=== PATIENT | female | born 1945 | race Caucasian/White ===

== ENCOUNTER 2019-05-31 15:28 | Inpatient (IN) | payer MEDICARE ==
[~2019-05-31] VITALS: Ht 170.2 cm; Wt 77.2 kg
[~2019-05-31 15:28] MED LIST: AMLODIPINE BESY10 MG PO; APRESOLINE25 MG PO; ASPIRIN ADULT L81 M2 PO; ASPIRIN CHEWABL81 MG PO; COREG3.125 MG PO; HYDROCHLOROTHIA50 M1 PO; IMDUR SA30 MG PO; KLOR-CON 1010 ME1 PO; LASIX40 MG PO; LISINOPRIL2.5 MG PO; METFORMIN HYD1000 MG PO; NORCO 5-325 TA1 EACH PO; RANEXA500 M1 PO; TRAD5TAB1 PO
[2019-05-31 15:45] VITALS: BP 198/90
[2019-05-31 16:00] VITALS: BP 198/90
[2019-05-31] MEDS ORDERED: COREG12.5 M1 PO (16:24)
[2019-05-31] MEDS ORDERED: HYDRALAZINE HYD50 MG PO (16:26)
[2019-05-31] MEDS ORDERED: IMDUR SA60 M1 PO (16:29)
[2019-05-31 16:30] VITALS: BP 184/82
[2019-05-31] MEDS ORDERED: COZAAR50 M1 PO (16:30)
[2019-05-31] MEDS ORDERED: VITAMIN D-32000 UNI1 PO (16:30)
[2019-05-31 17:00] LABS: BASO # 0.1 10*3/uL (0.0-0.1); BASO % 0.8 % (0.0-1.0); EOS # 0.2 10*3/uL (0.0-0.4); EOS % 2.1 % (1.0-4.0); HEMATOCRIT 36.9 % (37.0-47.0); HEMOGLOBIN 11.3 g/dl (12.0-16.0); LYMPH # 0.4 10*3/uL (1.3-4.4); LYMPH % 5.8 % (27.0-41.0); MEAN CELL VOLUME 88.5 fl (81.0-99.0); MEAN CORPUSCULAR HGB 27.1 pg (27.0-31.0); MEAN CORPUSCULAR HGB CONC 30.6 g/dl (33.0-37.0); MEAN PLATELET VOLUME 10.9 fl (9.6-12.3); MONO # 0.5 10*3/uL (0.1-1.0); MONO % 6.5 % (3.0-9.0); NEUT # 6.4 10*3/uL (2.3-7.9); NEUT % 84.1 % (47.0-73.0); PLATELET COUNT AUTOMATED 189 10*3/uL (130-400); RED BLOOD COUNT 4.17 10*6/uL (4.10-5.10); RED CELL DISTRI WIDTH 15.1 % (0-14.5); WHITE BLOOD COUNT 7.6 10*3/uL (4.8-10.8)
--- NOTE | 2019-05-31 17:12 | NUR ---
A 73, admitted to , under the services of Dr. MANUEL DAVIDSON,[facility] with a diagnosis of ACUTE ON CHRONIC DIASTOLIC HEART FAILURE. Chief complaint is SHORTNESS OF BREATH. Patient arrived via ambulatory from DR. JACKSON OFFICE. Monitor applied. Initial assessment completed. Vital signs taken and recorded. DR. ANNA DAVIDSON notified of admission to the unit IS AT BEDSIDE. Orders received. See assessment for past medical history, medications and allergies. Patient and/or family oriented to TELEMETRY visitation policy reviewed. Clothing/patient valuable form completed. ASAD WARD RN
[2019-05-31 17:13] LABS: ALBUMIN 3.2 gm/dl (3.1-4.5); CREATININE 2.31 mg/dL (0.55-1.02); POTASSIUM 4.8 mmol/L (3.5-5.1); TOTAL PROTEIN 6.7 gm/dL (6.4-8.2)
[2019-05-31 17:14] LABS: TROPONIN I < 0.015 ng/ml (<0.045)
--- NOTE | 2019-05-31 17:15 | NUR ---
DR. CASTILLO NOTIFIED OF PATIENT WOUND ON BOTTOM OF LEFT FOOT, AWAITING ORDERS.
--- NOTE | 2019-05-31 18:30 | NUR ---
DR. OWENS NOTIFIED OF CONSULT AT THIS TIME, STATED WILL SEE PATIENT TOMORROW
--- NOTE | 2019-05-31 18:40 | NUR ---
DR. OLSEN RECALLED FOR WOUND CARE ORDERS, ORDERED TO PLACE DRY DRESSING AT THIS TIME AND HAVE WOUND CARE PLACE ORDERS TOMORROW.
[2019-05-31 20:00] VITALS: BP 201/91
--- NOTE | 2019-05-31 20:20 | NUR ---
PT RESTING IN BED, ASSISTED UP TO BATHROOM AND BACK TO BED WITH NO PROBLEM. VISITORS AT HER SIDE. RESP-EASY AND REGULAR. CALL LIGHT IN REACH. SEE SHIFT ASSESSMENT.
[2019-05-31 20:30] VITALS: BP 186/96
[2019-05-31 21:50] VITALS: BP 160/80
--- NOTE | 2019-05-31 22:29 | NUR ---
DR. CASTILLO CALLED AWARE PT BP WAS 186/96 MANUALLY GAVE BP MEDICATIONS. TOOK AGAIN AT 10PM 160/80 MANUALLY. NO NEW ORDERS TAKEN.
[2019-06-01] VITALS: BP 148/48
--- NOTE | 2019-06-01 00:10 | NUR ---
ASSISTED TO BATHROOM AND BACK TO BED. RESP-EASY AND REGULAR. NO C/O AT THIS TIME. CALL LIGHT IN REACH. SEE SHIFT ASSESSMENT.
--- NOTE | 2019-06-01 04:00 | NUR ---
PT SLEEPING IN BED. RESP-EASY AND REGULAR. CALL LIGHT IN REACH.
--- NOTE | 2019-06-01 06:00 | NUR ---
PT ASSISTED UP TO BATHROOM AND BACK IN BED. TOLERATED ROUTINE IV MED WITH NO PROBLEM. CALL LIGHT IN REACH.
[2019-06-01 07:36] LABS: BASO % 0.5 % (0.0-1.0); EOS # 0.2 10*3/uL (0.0-0.4); EOS % 3.6 % (1.0-4.0); HEMOGLOBIN 10.5 g/dl (12.0-16.0); LYMPH # 0.5 10*3/uL (1.3-4.4); LYMPH % 8.3 % (27.0-41.0); MEAN CELL VOLUME 87.2 fl (81.0-99.0); MEAN CORPUSCULAR HGB 26.9 pg (27.0-31.0); MEAN CORPUSCULAR HGB CONC 30.9 g/dl (33.0-37.0); MEAN PLATELET VOLUME 11.4 fl (9.6-12.3); MONO # 0.5 10*3/uL (0.1-1.0); MONO % 7.9 % (3.0-9.0); NEUT # 4.9 10*3/uL (2.3-7.9); NEUT % 79.4 % (47.0-73.0); PLATELET COUNT AUTOMATED 177 10*3/uL (130-400); RED CELL DISTRI WIDTH 15.1 % (0-14.5); WHITE BLOOD COUNT 6.2 10*3/uL (4.8-10.8)
[2019-06-01 08:00] VITALS: BP 148/90
[2019-06-01 08:02] LABS: ALBUMIN 2.9 gm/dl (3.1-4.5); CREATININE 2.24 mg/dL (0.55-1.02); POTASSIUM 4.2 mmol/L (3.5-5.1)
--- NOTE | 2019-06-01 10:22 | NUR ---
DR HE MADE AWARE OF NEW CONSULT.
[2019-06-01 12:00] VITALS: BP 113/49; BP 148/90; BP 171/63
[2019-06-01 16:00] VITALS: BP 174/73
--- NOTE | 2019-06-01 16:00 | NUR ---
PT RESTING IN BED, NO DISTRESS NOTED. CALL LIGHT WITHIN REACH.
[2019-06-01 20:00] VITALS: BP 162/86
--- NOTE | 2019-06-01 20:07 | NUR ---
PT RELAXING IN BED WATCHING TV. PT STATES SHE IS BREATHING A LOT BETTER TODAY COMPARED TO YESTERDAY. PT BP ELEVATED AT 162/86. BP MED APRESOLINE GIVEN EARLY AT THIS TIME. WILL RECHECK BP. PT AYSMPTOMATIC. PT HAS NO COMPLAINTS AT THIS TIME. WILL MONITOR. CALL LIGHT WITHIN REACH.
[2019-06-01 21:00] VITALS: BP 146/84
--- NOTE | 2019-06-01 23:00 | NUR ---
24 HR chart check completed.
--- NOTE | 2019-06-01 23:20 | NUR ---
TRIED TO CALL TO INFORM HIM OF PTS BP 160/88 MANUALLY. NO ANSWER WILL RETRY.
--- NOTE | 2019-06-01 23:26 | NUR ---
TRIED TO CALL AGAIN. STILL NO ANSWER.
--- NOTE | 2019-06-01 23:26 | NUR ---
REACHED ON HIS HOME PHONE. SEE NEW ORDERS.
--- NOTE | 2019-06-01 23:44 | NUR ---
PTS BP BACK UP TO 160/88 MANUAL CHECK. ADMINISTERED CLONIDINE ORDERED. WILL RECHECK BP.
[2019-06-02] VITALS: BP 160/88
[2019-06-02 00:44] VITALS: BP 148/76
[2019-06-02 07:13] LABS: CREATININE 2.29 mg/dL (0.55-1.02)
[2019-06-02 08:08] VITALS: BP 190/100
--- NOTE | 2019-06-02 10:42 | NUR ---
DR JACKSON HERE AT THIS TIME, MADE AWARE OF AM BP OF 190/100 PRIOR TO AM MEDS, ONE HOUR FOLLOWING MEDS, BP IS 172/80, ORDER RECEIVED TO GIVE 0.1 MG OF CLONIDINE NOW AND RECHECK BP IN 6 HOURS.
--- NOTE | 2019-06-02 11:30 | NUR ---
DR JACKSON MADE AWARE OF WOUND TO PT'S LEFT PLANTAR ASPECT OF HER FOOT. ORDER RECEIVED FOR PODIATRY CONSULT AND ARTERIAL US.
[2019-06-02 12:00] VITALS: BP 176/70
--- NOTE | 2019-06-02 12:55 | NUR ---
PODIATRY HERE AT THIS TIME, DRESSING APPLIED TO LEFT FOOT.
[2019-06-02 15:58] VITALS: BP 149/64
[2019-06-02 20:23] VITALS: BP 140/92
[2019-06-03] VITALS: BP 156/88
[2019-06-03 06:30] LABS: CREATININE 2.41 mg/dL (0.55-1.02); POTASSIUM 4.2 mmol/L (3.5-5.1)
--- NOTE | 2019-06-03 07:15 | NUR ---
PT RESTING IN BED . RESPIRATIONS EASY AND REGULAR. PT HAS NO COMPLAINTS AT THIS TIME. CALL LIGHT WITHIN REACH. WILL CONTINUE TO MONITOR.
--- NOTE | 2019-06-03 07:27 | NUR ---
HUMA WRIGHT [id number] Please refer to the physician's history and physical for past medical history, comorbid conditions, and allergies. Diagnosis: H Vini Score: 18,LOW OR NO RISK WOUND DESCRIPTIONS: Wound Number: 1 Location of the wound: LEFT PLANTAR FOOT Type of wound: UNSTAGEABLE (DFU PER PODIATRY BUT NO GRADE DOCUMENTED) Thickness: Size: 2.5cm X 1.7cm X <0.1cm Tunneling: NONE Undermining: NONE Sinus Tract: NONE Presence of Exudate: None Amount: None Color: Brown Odor: None Periwound Skin Appearance: Normal Wound edges: CALLUS Pain (associated with wound): DENIED AT TIME OF ASSESSMENT How does patient state this happened? PATIENT STATES THAT SHE WAS IN [place] WITH HER SISTER WHEN SHE NOTICED THE AREA APPROXIMATELY 2 WEEKS AGO. PATIENT STATES THAT SHE DID NOT WANT TO SEE A DOCTOR IN [place] DUE TO PATIENT RETURNING HOME. If wound is on legs/feet or hands, capillary refill time, pulses, color temp, sensation: CAP REFILL <3 SECONDS. COLOR AND TEMP WNL. Surface the patient is resting on: Isoflex SKIN PREVENTION RECOMMENDATION: 1. Pressure redistribution support surface as appropriate 2. Elevate heels 3. Remove boots/TEDS every shift and reapply 4. Head of bed 30 degrees as tolerated 5. Assess nutrition and hydration 6. Manage moisture 7. Avoid the use of containment devices while in bed 8. Use absorptive products on surfaces limit layers of linens on bed 9. Turn and reposition every 1-2 hours in bed and every 1 hour in chair as tolerated 10. Weight shifts every 15 minutes while up in chair 11. Offloading with pillows or device to keep heels elevated off bed 12. Monitor skin at least every shift 13. Inspect under medical devices twice a day WOUND TREATMENT RECOMMENDATIONS: PODIATRY FOLLOWING PATIENT. CONTINUE CURRENT ORDERS OF BACTROBAN DAILY COVER WITH BANDAGE. BLE ULTRASOUNDS ORDERED. X-RAY OF LEFT FOOT ORDERED. POSSIBLE DEBRIDEMENT IF IMAGING STUDIES ALLOW. HEEL RAISER PROBOOTS WHILE IN BED.
[2019-06-03 08:00] VITALS: BP 158/84
--- NOTE | 2019-06-03 08:18 | NUR ---
PHYSICAL THERAPY Screen received pt is an admit from [facility] with respiratory failure/sepsis please consult PT as medically appropriate, thank you. Melinda Owens PT
--- NOTE | 2019-06-03 08:36 | NUR ---
Dr. Marin stated to put wound care recommendations in the hospitalist office for Dr. Jesus.
--- NOTE | 2019-06-03 09:00 | NUR ---
Clerk Travel Reservations in to talk to patient. Patient states lives at home alone with her family checking in on her. There are 14 steps in the home. Physician: Dr. Bola Montiel [facility]acy: [facility] Home health services: none Patient's level of ADLs: minimal assistance Patient has working utilities: yes DME: cane when needed Follow-up physician's appointment after d/c: she prefers to make her own follow up appt after discharge Does patient want to access PORTAL?: no Discharge plan discussed with patient. She lives at home alone with her family checking in on her. She is independent in his ADLs and uses a cane for ambulation occasionally. Discussed home health care services and she denies any home needs at this time. When medically stable she will be discharged to home. Her daughter will provide transportation on discharge. BP 156/88, added clonidine. Cr elevated 2.41, Dr. Latham consulted. Diuresing with Dr. Melissa garcia consulted. ROCK LAGUNA
[2019-06-03 12:00] VITALS: BP 154/55
--- NOTE | 2019-06-03 13:23 | NUR ---
INFORMED OF US RESULTS.
[2019-06-03 16:00] VITALS: BP 136/84
--- NOTE | 2019-06-03 16:10 | NUR ---
BROUGHT HEEL PROTECTORS IN AND LET HER KNOW THE DR WOULD LIKE HER TO WEAR THEM WHILE SHE'S IN BED. PT REFUSING TO WEAR THEM. LEFT IN ROOM INCASE PT CHANGES HER MIND.
--- NOTE | 2019-06-03 16:23 | NUR ---
Nursing screen received and chart reviewed. Patient lives home alone and was independent per case management prior to admission. If patient should have a decline in ADL status then refer to OT. Thank you. Samantha Ventura OTR/l
[2019-06-03 20:00] VITALS: BP 142/80
--- NOTE | 2019-06-03 20:20 | NUR ---
PT AWAKE IN BED. RESPIRATIONS EASY. NO S/S OF DISTRESS NOTED. DENIES ANY NEEDS AT PRESENT TIME. WILL MONITOR. CALL LIGHT IN REACH.
[2019-06-04] VITALS: BP 148/78
[2019-06-04 00:09] LABS: BILIRUBIN NEGATIVE (NEGATIVE); BLOOD 1+ (NEGATIVE); CLARITY CLEAR (CLEAR); COLOR YELLOW (YELLOW); GLUCOSE NEGATIVE (NEGATIVE); KETONE NEGATIVE (NEGATIVE); LEUKO ESTERASE NEGATIVE (NEGATIVE); NITRITE POSITIVE (NEGATIVE); SPECIFIC GRAVITY 1.015 (1.005-1.030); UROBILINOGEN 0.2 E.U./dl (0.2-1.0)
[2019-06-04 00:28] LABS: BACTERIA 2+; WBC 21-30 wbc/hpf (0-5)
--- NOTE | 2019-06-04 01:59 | NUR ---
PT ASLEEP IN BED. RESPIRATIONS EASY. NO S/S OF DISTRESS NOTED. WILL MONITOR. CALL LIGHT IN REACH.
--- NOTE | 2019-06-04 05:50 | NUR ---
PT REFUSING RENAL US. RN ATTEMPTED TO EXPLAIN NEED FOR TESTING. PT STILL DECLINING.
[2019-06-04 06:52] LABS: ALBUMIN 2.9 gm/dl (3.1-4.5); CREATININE 2.41 mg/dL (0.55-1.02); PHOSPHOROUS 4.2 mg/dL (2.5-4.9); TOTAL PROTEIN 6.1 gm/dL (6.4-8.2)
--- NOTE | 2019-06-04 07:15 | NUR ---
NOTIFIED OF PT REFUSING RENAL US.
[2019-06-04 08:00] VITALS: BP 190/90
--- NOTE | 2019-06-04 09:12 | NUR ---
DR. CASTILLO NOTIFIED OF 190/90 BP. HR 54, ORDERED TO HOLD COREG.
--- NOTE | 2019-06-04 10:30 | NUR ---
Button Sewer in to see patient. No new needs or request at this time. She denies any home needs. When medically stable she will be discharged to home. Dr. Torres consulted, chest x-ray pulmonary vascular congestion, lasix 40 mg iv bid, Cr elevated at 2.41, Dr. Latham following, renal u/s, repeat chest x-ray in a couple of days. DVT started on Eliquis.
--- NOTE | 2019-06-04 11:55 | NUR ---
Nutritional Support Services Note: Pt states he doesn't have a wound. Hand Laster was in and said it was a calleous and removed it. Encouraged pt to eat healthy meals. Stressed importance of increased protein and calories to promote healing. Pt is requesting a regular diet- currently on a cardiac diet. Will follow if needed. Will provide pt with a night snack. Lizbeth Dumont
[2019-06-04 12:00] VITALS: BP 148/68
[2019-06-04 16:00] VITALS: BP 152/75
[2019-06-04 20:00] VITALS: BP 162/86
[2019-06-04 21:20] VITALS: BP 142/90
[2019-06-05] VITALS: BP 154/80
[2019-06-05 05:09] LABS: CREATININE,URINE 22.4 mg/dL (Not Estab.); MICRO ALBUMIN/CRE RATIO 4947.3 (0.0-30.0)
[2019-06-05 06:44] LABS: CREATININE 2.5 mg/dL (0.55-1.02)
[2019-06-05 07:37] VITALS: BP 142/80
--- NOTE | 2019-06-05 07:37 | NUR ---
ASSESSMENT DOCUMENTATION COMPLETED, PT AWAKE AND IN RESTROOM UPON ENTERING THE ROOM, NO S/S OF DISTRESS AT THIS TIME, CALL LIGHT IN REACH, WILL CONTINUE TO MONITOR. CRISTINE LA SPCC
--- NOTE | 2019-06-05 09:00 | NUR ---
Deportation Officer in to see patient. No new needs or request at this time. She denies any home needs. When medically stable she will be discharged to home. Dr. Torres consulted, chest x-ray pulmonary vascular congestion, lasix 40 mg IV bid, lost 19 pounds, Dr. Latham following. Tentative discharge tomorrow.
--- NOTE | 2019-06-05 09:34 | NUR ---
IV SITE CHANGE DUE. RIGHT ARM IV FLUSHES EASILY. SITE ASYMPTOMATIC. PT DENIES PAIN OR DISCOMFORT AT SITE. PT REQUESTS TO NOT CHANGE AT THIS TIME.
--- NOTE | 2019-06-05 10:13 | NUR ---
APICAL HR 60 PRIOR TO GIVING COREG.
--- NOTE | 2019-06-05 10:15 | NUR ---
PT RELAXING IN BED, NO S/S OF DISTRESS AND HAS NO COMPLAINTS AT THIS TIME. CRISTINE LA SPNRCC
[2019-06-05 11:45] VITALS: BP 160/70
--- NOTE | 2019-06-05 11:48 | NUR ---
Eliquis 5 mg po BID prescription brought to pharmacy for [facility].
--- NOTE | 2019-06-05 12:11 | NUR ---
ASSESSMENT COMPLETED AND DOC'D. NO S/S OF DISTRESS AT THIS TIME AND NO COMPLAINTS. PT RESTING IN BED VISITING WITH FAMILY. CALL LIGHT IN REACH. CRISTINE LA SPVALERIECC
--- NOTE | 2019-06-05 13:15 | NUR ---
PT SITTING ON SIDE OF BED EATING LUNCH, NO S/S OF DISTRESS AT THIS TIME, REPORT GIVEN TO MANDY MOREAU. CRISTINE LA SPVALERIECC
[2019-06-05 16:00] VITALS: BP 154/57
[2019-06-05 20:00] VITALS: BP 152/64
[2019-06-06] VITALS: BP 145/69
[2019-06-06 07:05] LABS: CREATININE 2.58 mg/dL (0.55-1.02); POTASSIUM 3.8 mmol/L (3.5-5.1)
[2019-06-06 12:00] VITALS: BP 148/68
[2019-06-06] MEDS ORDERED: CEFUROXIME AXE500 MG PO (13:27)
--- NOTE | 2019-06-06 16:29 | NUR ---
Discharge instructions reviewed with patient/family. Patient receptive and verbalizes understanding. Follow-up care arranged. Written instructions given to patient/family. LAKSHMI TARANGO
== END 2019-06-06 16:30 | disposition home or self-care (01) | DRG 291 ==
LOC: 4E 15:28 → ICCU 16:43 → 4E 16:47
PROVIDERS: Internal Medicine; Internal Medicine Nephrology; ADMIT Internal Medicine
PROC: 0HDNXZZ Extraction of Left Foot Skin, External Approach (ICD-10-PCS; principal; 2019-06-03)
DX: I13.0 Hypertensive heart and chronic kidney disease with heart failure and stage 1 through stage 4 chronic kidney disease, or unspecified chronic kidney disease (principal); I50.43 Acute on chronic combined systolic (congestive) and diastolic (congestive) heart failure; N18.4 Chronic kidney disease, stage 4 (severe); N39.0 Urinary tract infection, site not specified; E44.1 Mild protein-calorie malnutrition; I82.412 Acute embolism and thrombosis of left femoral vein; N17.9 Acute kidney failure, unspecified; D64.9 Anemia, unspecified; I70.201 Unspecified atherosclerosis of native arteries of extremities, right leg; L57.0 Actinic keratosis; R00.1 Bradycardia, unspecified; D72.9 Disorder of white blood cells, unspecified; D72.810 Lymphocytopenia; I27.20 Pulmonary hypertension, unspecified; B96.20 Unspecified Escherichia coli [E. coli] as the cause of diseases classified elsewhere; I25.5 Ischemic cardiomyopathy; I44.7 Left bundle-branch block, unspecified; E13.65 Other specified diabetes mellitus with hyperglycemia; E13.22 Other specified diabetes mellitus with diabetic chronic kidney disease; N28.1 Cyst of kidney, acquired; S91.302A Unspecified open wound, left foot, initial encounter; X58.XXXA Exposure to other specified factors, initial encounter; Y93.89 Activity, other specified; Y92.89 Other specified places as the place of occurrence of the external cause; Y99.8 Other external cause status; I25.2 Old myocardial infarction; Z87.440 Personal history of urinary (tract) infections; Z83.3 Family history of diabetes mellitus; Z82.49 Family history of ischemic heart disease and other diseases of the circulatory system; Z88.8 Allergy status to other drugs, medicaments and biological substances; Z91.040 Latex allergy status; Z79.82 Long term (current) use of aspirin; Z79.899 Other long term (current) drug therapy; Z68.30 Body mass index [BMI] 30.0-30.9, adult

== ENCOUNTER → 2020-02-05 | Outpatient (CLI) | payer MEDICARE ==
[~2020-02-05] MED LIST changes: +CEFUROXIME AXE500 MG PO; +COREG12.5 M1 PO; +COZAAR50 M1 PO; +HYDRALAZINE HYD50 MG PO; +IMDUR SA60 M1 PO; +VITAMIN D-32000 UNI1 PO
== END | disposition home or self-care (01) ==
LOC: RAD 05:46
DX: I51.7 Cardiomegaly (principal)

== ENCOUNTER → 2020-02-25 | Outpatient (CLI) | payer MEDICARE ==
[2020-02-25 16:22] LABS: CREATININE 3.19 mg/dL (0.55-1.02); POTASSIUM 4.4 mmol/L (3.5-5.1)
== END | disposition home or self-care (01) ==
LOC: CARD 00:06
PROVIDERS: ATTEND Internal Medicine
DX: I08.1 Rheumatic disorders of both mitral and tricuspid valves (principal); N18.4 Chronic kidney disease, stage 4 (severe); I27.20 Pulmonary hypertension, unspecified

== ENCOUNTER 2020-04-06 14:50 | Inpatient (IN) | payer MEDICARE, SELFPAY ==
[~2020-04-06] VITALS: Ht 167.6 cm; Wt 76.7 kg
[2020-04-06 15:04] VITALS: BP 127/47
--- NOTE | 2020-04-06 16:13 | NUR ---
THIS NURSE WAS ASSISTING PATIENT INTO A GOWN AND I NOTICED A TICK ON HER RIGHT UPPER BACK. PATIENT DIDNT KNOW IT WAS THERE. NO COMPLAINTS.
[2020-04-06 16:27] LABS: BASO # 0.1 10*3/uL (0.0-0.1); BASO % 0.8 % (0.0-1.0); EOS # 0.1 10*3/uL (0.0-0.4); EOS % 1.7 % (1.0-4.0); HEMATOCRIT 36.8 % (37.0-47.0); LYMPH # 0.4 10*3/uL (1.3-4.4); LYMPH % 5.7 % (27.0-41.0); MEAN CELL VOLUME 83.6 fl (81.0-99.0); MEAN CORPUSCULAR HGB 26.1 pg (27.0-31.0); MEAN CORPUSCULAR HGB CONC 31.3 g/dl (33.0-37.0); MEAN PLATELET VOLUME 11.4 fl (9.6-12.3); MONO # 0.4 10*3/uL (0.1-1.0); MONO % 5.9 % (3.0-9.0); NEUT # 5.7 10*3/uL (2.3-7.9); NEUT % 85.3 % (47.0-73.0); PLATELET COUNT AUTOMATED 151 10*3/uL (130-400); RED CELL DISTRI WIDTH 16.5 % (0-14.5); WHITE BLOOD COUNT 6.7 10*3/uL (4.8-10.8)
[2020-04-06 16:41] LABS: ALBUMIN 3.8 gm/dl (3.1-4.5); CREATININE 3.06 mg/dL (0.55-1.02); POTASSIUM 4.1 mmol/L (3.5-5.1); TOTAL PROTEIN 7.4 gm/dL (6.4-8.2)
--- NOTE | 2020-04-06 17:45 | NUR ---
Time: 1744 A 74 year old FEMALE admitted to 5E under services of DR. MANUEL DAVIDSON,[facility]. Pt. arrived via ambulatory from ER. Chief complaint: UTI. SANDRA SANTIAGO
[2020-04-06 20:00] VITALS: BP 125/54
[2020-04-06 21:24] LABS: BILIRUBIN Negative (Negative); BLOOD Negative (Negative); CLARITY Cloudy (Clear); COLOR Yellow (Yellow); GLUCOSE Negative (Negative); KETONE Negative (Negative); LEUKO ESTERASE 2+ (Negative); NITRITE Positive (Negative); SPECIFIC GRAVITY 1.015 (1.001-1.030); UROBILINOGEN 0.2 E.U./dl (0.0-1.0)
[2020-04-06 21:36] LABS: BACTERIA 2+; WBC TNTC wbc/hpf (0-5)
[2020-04-07] VITALS: BP 123/61
[2020-04-07 08:00] VITALS: BP 158/76
--- NOTE | 2020-04-07 08:30 | NUR ---
Patient resting quietly with no c/o discomfort. Respirations easy and regular. Vital signs stable. No overt distress. PRICILLA RAI R
--- NOTE | 2020-04-07 09:00 | NUR ---
Leather Goods Maker in to talk to patient. Patient states lives at home alone normally with her family checking in on her. She states her sister from [place] is currently in town and will be staying with her for a couple of months. There are 0 steps in the home. There are 5 steps outside to the porch. Physician: Dr. Bola Montiel Pharmacy: [facility] Home health services: would like [facility] on discharge if home IV antibiotics are needed Patient's level of ADLs: independent Patient has working utilities: yes DME: cane (no use) Follow-up physician's appointment after d/c: she prefers to make her own follow up appt after discharge Does patient want to access PORTAL?: no Discharge plan discussed with patient. She normally lives at home alone with her family checking in on her but her sister from [place] is currently in and will be staying with her for a couple of months. She states she is independent in his ADLs and ambulation but has a cane if needed. Discussed short term rehab and she refuses. Discussed home health care services and she is agreeable if she needs home IV antibiotics. Discussed her Medicare insurance and if she had a secondary insurance. She states she does not have a secondary. Explained if she was to have the IV antibiotics at home there would be a cost associated due to her not having a secondary insurance as Medicare doesn't cover the IVs. She would like to see what the cost would be. Discussed her coming into the hospital to have them. She states it would be a half hour [address] way and that would be twice a day. She is unsure if she would be able to do that. Discharge plan undecided at this time. She states her sister will provide transportation on discharge. ROCK LAGUNA
[2020-04-07 12:00] VITALS: BP 145/61
--- NOTE | 2020-04-07 14:24 | NUR ---
DR HE AWARE OF CONSULT
[2020-04-07 16:00] VITALS: BP 137/71
[2020-04-07 20:00] VITALS: BP 122/57
[2020-04-08] VITALS: BP 133/65
[2020-04-08 08:00] VITALS: BP 136/52
--- NOTE | 2020-04-08 09:00 | NUR ---
CM in to see patient. No new needs or request at this time. Discussed Medicare not covering her home IV antibiotics and that she doesn't want to come into the hospital twice a day. Discussed the possibility of short term rehab. She would be agreeable to short term rehab if it would be covered by her insurance. marketing planner notified.
[2020-04-08 11:09] LABS: CREATININE,URINE 97.4 mg/dL (Not Estab.)
--- NOTE | 2020-04-08 11:10 | NUR ---
Patient referral faxed to [facility] for custodial for IV antibiotics. PT/OT evals and covid test also required for precert. Will fax when available.
[2020-04-08 12:00] VITALS: BP 133/59
--- NOTE | 2020-04-08 12:00 | NUR ---
SPOKE TO [facility]I IN SURGERY AND SHE STATES SHE IS UNSURE IF THEY WILL BE ABLE TO DO MIDLINE CATHETER TODAY
--- NOTE | 2020-04-08 12:01 | NUR ---
Patient has been accepted to [facility] with the meropenem. She requires a 3 night stay.
--- NOTE | 2020-04-08 12:10 | NUR ---
CM in to see patient. Discussed her ability to go to [facility] for her IV antibiotics. She is agreeable. Explained where the facility is. Dr. Montiel. notified. network planner following.
--- NOTE | 2020-04-08 13:55 | NUR ---
Occupational Therapy evaluation completed on 5 with full eval to follow. Recommend no further OT at this time. Patient could benefit from SNF for IV ABX. Thank you. Yana Ventura OTR/L
[2020-04-08 14:19] LABS: CREATININE 2.65 mg/dL (0.55-1.02); POTASSIUM 4.2 mmol/L (3.5-5.1)
--- NOTE | 2020-04-08 15:36 | NUR ---
PHYSICAL THERAPY Physical Therapy evaluation completed on 5th floor with full evaluation to follow. Recommend physical therapy per plan of care, per CM notes [place] [facility] [place] pt would also benefit from further PT for gait and stair training to ensure pt able to return home after finished with antibiotics as pt lives alone. Thank you for this referral. Melinda Owens PT
[2020-04-08 16:03] VITALS: BP 110/53
[2020-04-08 20:00] VITALS: BP 142/67
[2020-04-09] VITALS: BP 130/60
[2020-04-09 00:17] LABS: BASO % 0.5 % (0.0-1.0); EOS # 0.2 10*3/uL (0.0-0.4); EOS % 3.9 % (1.0-4.0); HEMATOCRIT 33.4 % (37.0-47.0); LYMPH # 0.3 10*3/uL (1.3-4.4); LYMPH % 5.8 % (27.0-41.0); MEAN CELL VOLUME 81.5 fl (81.0-99.0); MEAN CORPUSCULAR HGB 25.9 pg (27.0-31.0); MEAN CORPUSCULAR HGB CONC 31.7 g/dl (33.0-37.0); MEAN PLATELET VOLUME 10.9 fl (9.6-12.3); MONO # 0.4 10*3/uL (0.1-1.0); MONO % 7.8 % (3.0-9.0); NEUT # 4.6 10*3/uL (2.3-7.9); NEUT % 81.5 % (47.0-73.0); PLATELET COUNT AUTOMATED 135 10*3/uL (130-400); RED CELL DISTRI WIDTH 16.7 % (0-14.5); WHITE BLOOD COUNT 5.7 10*3/uL (4.8-10.8)
--- NOTE | 2020-04-09 01:59 | NUR ---
24 HR chart check completed.
[2020-04-09 06:55] VITALS: BP 146/72
--- NOTE | 2020-04-09 08:39 | NUR ---
Updated clinicals and therpy evals faxed to [facility] for review. Patient requires 3 night stay
--- NOTE | 2020-04-09 09:00 | NUR ---
CM in to see patient. No new needs or request at this time. She is sitting on the edge of her bed. Awaiting final urine culture to see if patient needs IV antibiotics. [facility] vs home. Discharge plan undecided at this time.
--- NOTE | 2020-04-09 10:45 | NUR ---
PHYSICAL THERAPY Patient seen this am 1;1 for therapy visit and was sitting up on EOB upon therapist arrival. Patient identified by name / and was very pleasant this morning voicing no new c/o's at this time. Patient was Independent for all transfers and ambulated without AD with Supervision, ad mary in room due to standard isolation precautions. Patient demonstrated slow, steady nikki and tolerated standing eyes open / closed balance ex x 10 seconds each without LOB. Total gait distance 40'x 2 as patient returned to EOB and remaine with call light, tray table, telephone. Will continue per POC as tolerated, total treatment time 16 minutes. Long Johnson, [employer] ARCHITECT
[2020-04-09 12:00] VITALS: BP 149/77
[2020-04-09] MEDS ORDERED: DOXYCYCLINE100 M3 PO ×3 (12:50→12:51)
--- NOTE | 2020-04-09 13:05 | NUR ---
Received discharge order for patient. CM in to see patient to discuss any home needs. She is sitting on the edge of her bed. Discussed home health care services and she declines. She states her sister from [place] will be staying with her for a couple of weeks. capacity planner notified of patient going home.
--- NOTE | 2020-04-09 14:56 | NUR ---
Discharge instructions reviewed with patient/family. Patient receptive and verbalizes understanding. Follow-up care arranged. Written instructions given to patient/family. MITUL WARD
[2020-04-10 08:08] LABS: COMPLEMENT C4 11 mg/dL (14-44)
[2020-04-13 13:06] LABS: GLOMERULAR BASEMENT AB 4 units (0-20)
[2020-04-13 15:10] LABS: ATYPICAL PANCA <1:20 titer (Neg:<1:20); CYTOPLASMIC (C-ANCA) <1:20 titer (Neg:<1:20)
== END 2020-04-09 14:56 | disposition home or self-care (01) | DRG 689 ==
LOC: ED 14:50 → EDHOLD 15:56 → 5E 15:56
PROVIDERS: Internal Medicine Nephrology; Physician Assistant; ADMIT Internal Medicine; ATTEND Internal Medicine
DX: N39.0 Urinary tract infection, site not specified (principal); N17.0 Acute kidney failure with tubular necrosis; Z16.12 Extended spectrum beta lactamase (ESBL) resistance; N18.4 Chronic kidney disease, stage 4 (severe); I25.5 Ischemic cardiomyopathy; A49.9 Bacterial infection, unspecified; Z20.828 Contact with and (suspected) exposure to other viral communicable diseases; E11.22 Type 2 diabetes mellitus with diabetic chronic kidney disease; E80.6 Other disorders of bilirubin metabolism; E11.65 Type 2 diabetes mellitus with hyperglycemia; I12.9 Hypertensive chronic kidney disease with stage 1 through stage 4 chronic kidney disease, or unspecified chronic kidney disease; E83.9 Disorder of mineral metabolism, unspecified; D64.9 Anemia, unspecified; N28.1 Cyst of kidney, acquired; W57.XXXA Bitten or stung by nonvenomous insect and other nonvenomous arthropods, initial encounter; Z88.8 Allergy status to other drugs, medicaments and biological substances; Z90.710 Acquired absence of both cervix and uterus; Z82.49 Family history of ischemic heart disease and other diseases of the circulatory system; Z68.21 Body mass index [BMI] 21.0-21.9, adult

== ENCOUNTER → 2020-05-27 | Outpatient (CLI) | payer MEDICARE ==
[~2020-05-27] MED LIST changes: +DOXYCYCLINE100 M3 PO
[2020-05-27 12:53] LABS: ALBUMIN 3.7 gm/dl (3.1-4.5); CREATININE 2.42 mg/dL (0.55-1.02); POTASSIUM 4.8 mmol/L (3.5-5.1); TOTAL PROTEIN 7.3 gm/dL (6.4-8.2)
[2020-05-27 17:18] LABS: BILIRUBIN Negative (Negative); BLOOD 1+ (Negative); CLARITY Turbid (Clear); COLOR Yellow (Yellow); GLUCOSE Negative (Negative); KETONE Negative (Negative); LEUKO ESTERASE 3+ (Negative); NITRITE Positive (Negative); SPECIFIC GRAVITY 1.015 (1.001-1.030); UROBILINOGEN 0.2 E.U./dl (0.0-1.0)
[2020-05-27 19:16] LABS: BACTERIA 4+; RBC 0-2 rbc/hpf (0-2); WBC 51-100 wbc/hpf (0-5)
[2020-05-28 13:06] LABS: ANTI-DSDNA ANTIBODIES <1 IU/mL (0-9)
[2020-05-29 10:09] LABS: CREATININE,URINE 76.7 mg/dL (Not Estab.)
[2020-05-29 14:11] LABS: ANTIMYELOPEROXIDASE (MPO) ABS <9.0 U/mL (0.0-9.0)
[2020-05-29 17:11] LABS: ATYPICAL PANCA <1:20 titer (Neg:<1:20); CYTOPLASMIC (C-ANCA) <1:20 titer (Neg:<1:20)
== END | disposition home or self-care (01) ==
LOC: LAB 00:11
PROVIDERS: ATTEND Internal Medicine Nephrology
DX: N18.4 Chronic kidney disease, stage 4 (severe) (principal); R76.8 Other specified abnormal immunological findings in serum; N39.0 Urinary tract infection, site not specified

== ENCOUNTER 2020-06-26 13:50 | Inpatient (IN) | payer MEDICARE ==
[~2020-06-26] VITALS: Ht 167.6 cm; Wt 80.4 kg
[2020-06-26 13:53] VITALS: BP 160/75
[2020-06-26 14:38] LABS: BASO % 0.5 % (0.0-1.0); EOS # 0.1 10*3/uL (0.0-0.4); EOS % 1.1 % (1.0-4.0); HEMATOCRIT 38.8 % (37.0-47.0); LYMPH # 0.3 10*3/uL (1.3-4.4); LYMPH % 5.3 % (27.0-41.0); MEAN CELL VOLUME 82.2 fl (81.0-99.0); MEAN CORPUSCULAR HGB 25.2 pg (27.0-31.0); MEAN CORPUSCULAR HGB CONC 30.7 g/dl (33.0-37.0); MEAN PLATELET VOLUME 10.5 fl (9.6-12.3); MONO # 0.3 10*3/uL (0.1-1.0); MONO % 5.3 % (3.0-9.0); NEUT # 5.4 10*3/uL (2.3-7.9); NEUT % 87.6 % (47.0-73.0); PLATELET COUNT AUTOMATED 149 10*3/uL (130-400); RED BLOOD COUNT 4.72 10*6/uL (4.10-5.10); RED CELL DISTRI WIDTH 16.1 % (0-14.5); WHITE BLOOD COUNT 6.2 10*3/uL (4.8-10.8)
[2020-06-26 14:51] LABS: ALBUMIN 3.8 gm/dl (3.1-4.5); CREATININE 2.65 mg/dL (0.55-1.02); POTASSIUM 4.3 mmol/L (3.5-5.1); TOTAL PROTEIN 7.2 gm/dL (6.4-8.2)
[2020-06-26 16:22] VITALS: BP 161/81
[2020-06-26 17:09] VITALS: BP 159/91
[2020-06-26 20:48] VITALS: BP 120/61
[2020-06-26 21:39] VITALS: BP 143/65
[2020-06-26 21:47] VITALS: BP 144/67
[2020-06-27 05:41] LABS: CREATININE 2.69 mg/dL (0.55-1.02)
[2020-06-27 06:09] LABS: BASO % 0.8 % (0.0-1.0); EOS # 0.1 10*3/uL (0.0-0.4); EOS % 2.5 % (1.0-4.0); HEMATOCRIT 38.2 % (37.0-47.0); LYMPH # 0.5 10*3/uL (1.3-4.4); LYMPH % 8.8 % (27.0-41.0); MEAN CELL VOLUME 83.2 fl (81.0-99.0); MEAN CORPUSCULAR HGB 25.3 pg (27.0-31.0); MEAN CORPUSCULAR HGB CONC 30.4 g/dl (33.0-37.0); MEAN PLATELET VOLUME 11.1 fl (9.6-12.3); MONO # 0.4 10*3/uL (0.1-1.0); MONO % 7.6 % (3.0-9.0); NEUT # 4.2 10*3/uL (2.3-7.9); NEUT % 80.1 % (47.0-73.0); PLATELET COUNT AUTOMATED 144 10*3/uL (130-400); RED BLOOD COUNT 4.59 10*6/uL (4.10-5.10); RED CELL DISTRI WIDTH 16.1 % (0-14.5); WHITE BLOOD COUNT 5.2 10*3/uL (4.8-10.8)
[2020-06-27 06:55] VITALS: BP 137/49
[2020-06-27 07:42] LABS: BILIRUBIN Negative (Negative); BLOOD Negative (Negative); CLARITY Clear (Clear); COLOR Yellow (Yellow); GLUCOSE Negative (Negative); KETONE Negative (Negative); LEUKO ESTERASE 2+ (Negative); NITRITE Positive (Negative); UROBILINOGEN 0.2 E.U./dl (0.0-1.0)
[2020-06-27 08:20] LABS: BACTERIA 4+; WBC 31-40 wbc/hpf (0-5)
[2020-06-27 10:30] VITALS: BP 140/59
[2020-06-27 11:32] VITALS: BP 150/72
[2020-06-27 12:40] VITALS: BP 150/68
[2020-06-27 16:00] VITALS: BP 115/45
[2020-06-27 20:00] VITALS: BP 123/51
[2020-06-28] VITALS: BP 131/71
[2020-06-28 04:00] VITALS: BP 134/76
[2020-06-28 06:33] LABS: BASO % 0.7 % (0.0-1.0); EOS # 0.1 10*3/uL (0.0-0.4); EOS % 2.4 % (1.0-4.0); HEMATOCRIT 34.9 % (37.0-47.0); LYMPH # 0.4 10*3/uL (1.3-4.4); LYMPH % 8.7 % (27.0-41.0); MEAN CELL VOLUME 82.1 fl (81.0-99.0); MEAN CORPUSCULAR HGB 25.2 pg (27.0-31.0); MEAN CORPUSCULAR HGB CONC 30.7 g/dl (33.0-37.0); MEAN PLATELET VOLUME 10.2 fl (9.6-12.3); MONO # 0.4 10*3/uL (0.1-1.0); MONO % 8.9 % (3.0-9.0); NEUT # 3.6 10*3/uL (2.3-7.9); NEUT % 79.1 % (47.0-73.0); PLATELET COUNT AUTOMATED 131 10*3/uL (130-400); RED BLOOD COUNT 4.25 10*6/uL (4.10-5.10); RED CELL DISTRI WIDTH 16.2 % (0-14.5); WHITE BLOOD COUNT 4.6 10*3/uL (4.8-10.8)
[2020-06-28 06:45] LABS: CREATININE 2.73 mg/dL (0.55-1.02)
[2020-06-28 08:00] VITALS: BP 161/86
[2020-06-28 10:37] LABS: BILIRUBIN Negative (Negative); BLOOD 1+ (Negative); CLARITY Cloudy (Clear); COLOR Yellow (Yellow); GLUCOSE Negative (Negative); KETONE Negative (Negative); LEUKO ESTERASE 3+ (Negative); NITRITE Negative (Negative)
[2020-06-28 10:55] LABS: WBC TNTC wbc/hpf (0-5)
[2020-06-28 11:01] LABS: BACTERIA 4+; TRIP PHOS CRYSTALS 2+
[2020-06-28 12:00] VITALS: BP 152/70
[2020-06-28 16:00] VITALS: BP 126/52
[2020-06-28 20:00] VITALS: BP 150/74
[2020-06-29] VITALS: BP 128/57
[2020-06-29 06:34] LABS: BASO % 0.9 % (0.0-1.0); EOS # 0.1 10*3/uL (0.0-0.4); EOS % 2.7 % (1.0-4.0); HEMATOCRIT 35.9 % (37.0-47.0); LYMPH # 0.5 10*3/uL (1.3-4.4); LYMPH % 11.8 % (27.0-41.0); MEAN CELL VOLUME 81.6 fl (81.0-99.0); MEAN CORPUSCULAR HGB 25.5 pg (27.0-31.0); MEAN CORPUSCULAR HGB CONC 31.2 g/dl (33.0-37.0); MONO # 0.4 10*3/uL (0.1-1.0); MONO % 9.3 % (3.0-9.0); NEUT # 3.4 10*3/uL (2.3-7.9); NEUT % 75.1 % (47.0-73.0); PLATELET COUNT AUTOMATED 139 10*3/uL (130-400); RED CELL DISTRI WIDTH 16.1 % (0-14.5); WHITE BLOOD COUNT 4.5 10*3/uL (4.8-10.8)
[2020-06-29 06:47] LABS: CREATININE 2.78 mg/dL (0.55-1.02)
[2020-06-29 12:00] VITALS: BP 156/70
[2020-06-29 16:00] VITALS: BP 169/79
[2020-06-29 20:00] VITALS: BP 156/77
[2020-06-30] VITALS: BP 156/75
[2020-06-30 06:07] VITALS: BP 139/71
[2020-06-30 06:50] LABS: BASO % 0.9 % (0.0-1.0); EOS # 0.2 10*3/uL (0.0-0.4); EOS % 3.4 % (1.0-4.0); HEMATOCRIT 34.3 % (37.0-47.0); LYMPH # 0.5 10*3/uL (1.3-4.4); LYMPH % 10.9 % (27.0-41.0); MEAN CELL VOLUME 82.5 fl (81.0-99.0); MEAN CORPUSCULAR HGB 25.7 pg (27.0-31.0); MEAN CORPUSCULAR HGB CONC 31.2 g/dl (33.0-37.0); MEAN PLATELET VOLUME 10.3 fl (9.6-12.3); MONO # 0.5 10*3/uL (0.1-1.0); MONO % 11.1 % (3.0-9.0); NEUT # 3.4 10*3/uL (2.3-7.9); NEUT % 73.1 % (47.0-73.0); PLATELET COUNT AUTOMATED 131 10*3/uL (130-400); RED BLOOD COUNT 4.16 10*6/uL (4.10-5.10); WHITE BLOOD COUNT 4.7 10*3/uL (4.8-10.8)
[2020-06-30 07:23] LABS: POTASSIUM 3.7 mmol/L (3.5-5.1)
[2020-06-30 07:26] LABS: CREATININE 2.62 mg/dL (0.55-1.02)
[2020-06-30 08:00] VITALS: BP 127/47
[2020-06-30 12:00] VITALS: BP 125/52
[2020-06-30 16:00] VITALS: BP 162/73
[2020-06-30 20:00] VITALS: BP 146/64
[2020-07-01] VITALS: BP 147/59
[2020-07-01 06:17] VITALS: BP 136/66
[2020-07-01 08:00] VITALS: BP 142/58
[2020-07-01 11:02] LABS: BASO % 0.6 % (0.0-1.0); EOS # 0.2 10*3/uL (0.0-0.4); EOS % 3.2 % (1.0-4.0); HEMATOCRIT 36.4 % (37.0-47.0); LYMPH # 0.4 10*3/uL (1.3-4.4); MEAN CELL VOLUME 82.4 fl (81.0-99.0); MEAN CORPUSCULAR HGB 25.3 pg (27.0-31.0); MEAN CORPUSCULAR HGB CONC 30.8 g/dl (33.0-37.0); MEAN PLATELET VOLUME 11.1 fl (9.6-12.3); MONO # 0.4 10*3/uL (0.1-1.0); MONO % 7.8 % (3.0-9.0); NEUT # 4.3 10*3/uL (2.3-7.9); NEUT % 80.8 % (47.0-73.0); PLATELET COUNT AUTOMATED 150 10*3/uL (130-400); RED BLOOD COUNT 4.42 10*6/uL (4.10-5.10); RED CELL DISTRI WIDTH 16.1 % (0-14.5); WHITE BLOOD COUNT 5.3 10*3/uL (4.8-10.8)
[2020-07-01 12:00] VITALS: BP 167/76
[2020-07-01 16:00] VITALS: BP 158/70
[2020-07-01 17:09] LABS: CREATININE 2.64 mg/dL (0.55-1.02); POTASSIUM 3.9 mmol/L (3.5-5.1)
[2020-07-01 20:00] VITALS: BP 167/81
[2020-07-02] VITALS (8 sets, daily range): BP systolic 133–177; BP diastolic 66–98
[2020-07-02 06:34] LABS: BASO % 0.6 % (0.0-1.0); EOS # 0.2 10*3/uL (0.0-0.4); EOS % 3.8 % (1.0-4.0); HEMATOCRIT 35.2 % (37.0-47.0); LYMPH # 0.4 10*3/uL (1.3-4.4); LYMPH % 8.4 % (27.0-41.0); MEAN CELL VOLUME 80.2 fl (81.0-99.0); MEAN CORPUSCULAR HGB 25.1 pg (27.0-31.0); MEAN CORPUSCULAR HGB CONC 31.3 g/dl (33.0-37.0); MEAN PLATELET VOLUME 11.3 fl (9.6-12.3); MONO # 0.5 10*3/uL (0.1-1.0); MONO % 10.9 % (3.0-9.0); NEUT # 3.6 10*3/uL (2.3-7.9); NEUT % 75.9 % (47.0-73.0); PLATELET COUNT AUTOMATED 154 10*3/uL (130-400); RED BLOOD COUNT 4.39 10*6/uL (4.10-5.10); RED CELL DISTRI WIDTH 15.9 % (0-14.5); WHITE BLOOD COUNT 4.8 10*3/uL (4.8-10.8)
[2020-07-02 06:54] LABS: CREATININE 2.47 mg/dL (0.55-1.02); POTASSIUM 3.8 mmol/L (3.5-5.1)
[2020-07-03] VITALS: BP 161/85
[2020-07-03 06:00] VITALS: BP 148/83
[2020-07-03 07:00] LABS: CREATININE 2.49 mg/dL (0.55-1.02); POTASSIUM 3.6 mmol/L (3.5-5.1)
[2020-07-03 08:00] VITALS: BP 151/91
[2020-07-03 10:00] VITALS: BP 148/78
[2020-07-03 12:00] VITALS: BP 178/85
[2020-07-03] MEDS ORDERED: LASIX40 MG PO ×2 (14:02)
== END 2020-07-03 17:29 | disposition home or self-care (01) | DRG 291 ==
LOC: ED 13:50 → 5E 15:18 → EDHOLD 15:18 → 5E 06-27 11:29
PROVIDERS: Internal Medicine Nephrology; Nurse Practitioner Family; Podiatrist Foot & Ankle Surgery; Social Worker Clinical; ADMIT Internal Medicine; ATTEND Internal Medicine
PROC: 05H933Z Insertion of Infusion Device into Right Brachial Vein, Percutaneous Approach (ICD-10-PCS; principal; 2020-06-30)
PROC: B54MZZA Ultrasonography of Right Upper Extremity Veins, Guidance (ICD-10-PCS; 2020-06-30)
DX: I13.0 Hypertensive heart and chronic kidney disease with heart failure and stage 1 through stage 4 chronic kidney disease, or unspecified chronic kidney disease (principal); N17.0 Acute kidney failure with tubular necrosis; I50.23 Acute on chronic systolic (congestive) heart failure; N39.0 Urinary tract infection, site not specified; Z16.12 Extended spectrum beta lactamase (ESBL) resistance; N18.4 Chronic kidney disease, stage 4 (severe); B96.20 Unspecified Escherichia coli [E. coli] as the cause of diseases classified elsewhere; E11.22 Type 2 diabetes mellitus with diabetic chronic kidney disease; I25.5 Ischemic cardiomyopathy; R00.1 Bradycardia, unspecified; D64.9 Anemia, unspecified; D72.9 Disorder of white blood cells, unspecified; E11.65 Type 2 diabetes mellitus with hyperglycemia; E80.6 Other disorders of bilirubin metabolism; E83.9 Disorder of mineral metabolism, unspecified; R19.7 Diarrhea, unspecified; D72.810 Lymphocytopenia; E83.39 Other disorders of phosphorus metabolism; I27.20 Pulmonary hypertension, unspecified; E11.21 Type 2 diabetes mellitus with diabetic nephropathy; Z83.3 Family history of diabetes mellitus; Z82.49 Family history of ischemic heart disease and other diseases of the circulatory system; I25.2 Old myocardial infarction; Z86.718 Personal history of other venous thrombosis and embolism; Z79.82 Long term (current) use of aspirin; Z79.899 Other long term (current) drug therapy

== ENCOUNTER → 2020-07-06 | Outpatient (CLI) | payer MEDICARE ==
[2020-07-06 11:53] LABS: BILIRUBIN Negative (Negative); BLOOD Negative (Negative); CLARITY Clear (Clear); COLOR Yellow (Yellow); GLUCOSE Negative (Negative); KETONE Negative (Negative); LEUKO ESTERASE Negative (Negative); NITRITE Negative (Negative); UROBILINOGEN 0.2 E.U./dl (0.0-1.0)
[2020-07-06 12:14] LABS: CREATININE 3.22 mg/dL (0.55-1.02)
[2020-07-06 12:27] LABS: BACTERIA 2+; MUCOUS TRACE; RBC 16-20 rbc/hpf (0-2)
== END | disposition home or self-care (01) ==
LOC: LAB 11:35
PROVIDERS: Internal Medicine; ATTEND Internal Medicine Nephrology
DX: N18.9 Chronic kidney disease, unspecified (principal); Z79.899 Other long term (current) drug therapy

== ENCOUNTER 2020-08-25 14:44 | Inpatient (IN) | payer MEDICARE ==
[~2020-08-25] VITALS: Ht 167.6 cm; Wt 91.2 kg
[2020-08-25 14:59] VITALS: BP 119/61
[2020-08-25 15:08] LABS: BASO # 0.1 10*3/uL (0.0-0.1); BASO % 0.6 % (0.0-1.0); EOS % 0.4 % (1.0-4.0); HEMATOCRIT 41.3 % (37.0-47.0); LYMPH # 0.3 10*3/uL (1.3-4.4); LYMPH % 3.6 % (27.0-41.0); MEAN CELL VOLUME 79.4 fl (81.0-99.0); MEAN CORPUSCULAR HGB 24.2 pg (27.0-31.0); MEAN CORPUSCULAR HGB CONC 30.5 g/dl (33.0-37.0); MEAN PLATELET VOLUME 10.7 fl (9.6-12.3); MONO # 0.5 10*3/uL (0.1-1.0); NEUT # 7.1 10*3/uL (2.3-7.9); PLATELET COUNT AUTOMATED 198 10*3/uL (130-400); RED CELL DISTRI WIDTH 18.7 % (0-14.5)
[2020-08-25 15:21] LABS: INTERNATIONAL NORM RATIO 1.2 (2.0-3.5)
[2020-08-25 15:24] LABS: ALBUMIN 3.6 gm/dl (3.1-4.5); CREATININE 3.21 mg/dL (0.55-1.02); POTASSIUM 5.6 mmol/L (3.5-5.1); TOTAL PROTEIN 7.4 gm/dL (6.4-8.2)
[2020-08-25 15:25] LABS: TROPONIN I 0.017 ng/ml (<0.045)
[2020-08-25 17:12] VITALS: BP 110/53
[2020-08-25 18:43] VITALS: BP 120/78
[2020-08-25 22:42] LABS: CREATININE 3.25 mg/dL (0.55-1.02); POTASSIUM 5.8 mmol/L (3.5-5.1)
[2020-08-25 23:38] VITALS: BP 124/76
[2020-08-26 00:45] VITALS: BP 149/72
[2020-08-26] MEDS ORDERED: LASIX40 MG PO (02:07)
[2020-08-26 06:25] LABS: BASO % 0.6 % (0.0-1.0); EOS # 0.1 10*3/uL (0.0-0.4); EOS % 0.9 % (1.0-4.0); HEMATOCRIT 38.9 % (37.0-47.0); LYMPH # 0.4 10*3/uL (1.3-4.4); LYMPH % 5.3 % (27.0-41.0); MEAN CORPUSCULAR HGB 24.1 pg (27.0-31.0); MEAN CORPUSCULAR HGB CONC 30.1 g/dl (33.0-37.0); MEAN PLATELET VOLUME 10.6 fl (9.6-12.3); MONO # 0.5 10*3/uL (0.1-1.0); MONO % 7.2 % (3.0-9.0); NEUT % 85.6 % (47.0-73.0); PLATELET COUNT AUTOMATED 175 10*3/uL (130-400); RED BLOOD COUNT 4.86 10*6/uL (4.10-5.10); RED CELL DISTRI WIDTH 18.3 % (0-14.5)
[2020-08-26 06:54] LABS: ALBUMIN 3.3 gm/dl (3.1-4.5); CREATININE 3.33 mg/dL (0.55-1.02); POTASSIUM 5.5 mmol/L (3.5-5.1)
[2020-08-26 06:59] LABS: THYROID STIM HORMONE (HS) 1.25 uIU/ml (0.358-4.75)
[2020-08-26 07:27] LABS: VITAMIN D, 25-HYDROXY 36.8 ng/mL (30-100)
[2020-08-26 08:00] VITALS: BP 133/64
[2020-08-26 12:00] VITALS: BP 130/65
[2020-08-26 16:00] VITALS: BP 132/60
[2020-08-26 18:02] LABS: BILIRUBIN Negative (Negative); BLOOD Negative (Negative); CLARITY Clear (Clear); COLOR Yellow (Yellow); GLUCOSE Negative (Negative); KETONE Negative (Negative); LEUKO ESTERASE Negative (Negative); NITRITE Negative (Negative); SPECIFIC GRAVITY 1.015 (1.001-1.030); UROBILINOGEN 0.2 E.U./dl (0.0-1.0)
[2020-08-26 18:28] LABS: WBC 0-2 wbc/hpf (0-5)
[2020-08-26 18:29] LABS: BACTERIA 1+; HYALINE CAST TNTC
[2020-08-26 20:00] VITALS: BP 118/54
[2020-08-27] VITALS: BP 113/47
[2020-08-27 06:27] LABS: BASO % 0.6 % (0.0-1.0); EOS # 0.2 10*3/uL (0.0-0.4); EOS % 2.1 % (1.0-4.0); HEMATOCRIT 36.7 % (37.0-47.0); LYMPH # 0.3 10*3/uL (1.3-4.4); LYMPH % 3.8 % (27.0-41.0); MEAN CELL VOLUME 79.4 fl (81.0-99.0); MEAN CORPUSCULAR HGB 23.8 pg (27.0-31.0); MEAN PLATELET VOLUME 10.4 fl (9.6-12.3); MONO # 0.6 10*3/uL (0.1-1.0); MONO % 8.3 % (3.0-9.0); NEUT % 84.9 % (47.0-73.0); PLATELET COUNT AUTOMATED 172 10*3/uL (130-400); RED BLOOD COUNT 4.62 10*6/uL (4.10-5.10); RED CELL DISTRI WIDTH 18.1 % (0-14.5)
[2020-08-27 06:58] LABS: ALBUMIN 3.2 gm/dl (3.1-4.5); CREATININE 3.35 mg/dL (0.55-1.02); POTASSIUM 4.7 mmol/L (3.5-5.1); TOTAL PROTEIN 6.6 gm/dL (6.4-8.2)
[2020-08-27 08:00] VITALS: BP 134/65
[2020-08-27 12:00] VITALS: BP 118/61
[2020-08-27 16:00] VITALS: BP 111/51
[2020-08-27 20:00] VITALS: BP 130/64
[2020-08-27 22:00] VITALS: BP 135/74
[2020-08-28] VITALS: BP 132/58
[2020-08-28 06:29] LABS: BASO % 0.4 % (0.0-1.0); EOS # 0.2 10*3/uL (0.0-0.4); HEMATOCRIT 37.5 % (37.0-47.0); LYMPH # 0.3 10*3/uL (1.3-4.4); MEAN CELL VOLUME 78.9 fl (81.0-99.0); MEAN CORPUSCULAR HGB CONC 30.4 g/dl (33.0-37.0); MEAN PLATELET VOLUME 10.4 fl (9.6-12.3); MONO # 0.6 10*3/uL (0.1-1.0); MONO % 8.6 % (3.0-9.0); NEUT # 5.6 10*3/uL (2.3-7.9); NEUT % 83.7 % (47.0-73.0); PLATELET COUNT AUTOMATED 151 10*3/uL (130-400); RED BLOOD COUNT 4.75 10*6/uL (4.10-5.10); RED CELL DISTRI WIDTH 18.1 % (0-14.5); WHITE BLOOD COUNT 6.7 10*3/uL (4.8-10.8)
[2020-08-28 06:53] LABS: ALBUMIN 3.1 gm/dl (3.1-4.5); CREATININE 2.82 mg/dL (0.55-1.02); POTASSIUM 4.1 mmol/L (3.5-5.1); TOTAL PROTEIN 6.5 gm/dL (6.4-8.2)
[2020-08-28 07:45] VITALS: BP 147/79
[2020-08-28 16:00] VITALS: BP 104/47
[2020-08-28 20:00] VITALS: BP 107/53
[2020-08-29] VITALS: BP 116/48
[2020-08-29 03:06] LABS: HEP B CORE AB, IGM Negative (Negative); HEPATITIS B SURFACE AG Negative (Negative); HEPATITIS C VIRUS ANTIBODY <0.1 s/co (0.0-0.9)
[2020-08-29 06:17] LABS: BASO % 0.3 % (0.0-1.0); EOS # 0.1 10*3/uL (0.0-0.4); EOS % 0.6 % (1.0-4.0); HEMATOCRIT 39.1 % (37.0-47.0); LYMPH # 0.2 10*3/uL (1.3-4.4); LYMPH % 1.9 % (27.0-41.0); MEAN CELL VOLUME 79.6 fl (81.0-99.0); MEAN CORPUSCULAR HGB 24.2 pg (27.0-31.0); MEAN CORPUSCULAR HGB CONC 30.4 g/dl (33.0-37.0); MEAN PLATELET VOLUME 10.6 fl (9.6-12.3); MONO # 0.6 10*3/uL (0.1-1.0); NEUT # 8.1 10*3/uL (2.3-7.9); NEUT % 89.6 % (47.0-73.0); PLATELET COUNT AUTOMATED 142 10*3/uL (130-400); RED BLOOD COUNT 4.91 10*6/uL (4.10-5.10); RED CELL DISTRI WIDTH 18.6 % (0-14.5)
[2020-08-29 06:29] LABS: ALBUMIN 3.2 gm/dl (3.1-4.5); CREATININE 2.37 mg/dL (0.55-1.02); POTASSIUM 3.8 mmol/L (3.5-5.1); TOTAL PROTEIN 6.8 gm/dL (6.4-8.2)
[2020-08-29 11:05] VITALS: BP 97/57
[2020-08-29 12:00] VITALS: BP 112/62
[2020-08-29 16:00] VITALS: BP 118/61
[2020-08-29 20:00] VITALS: BP 108/62
[2020-08-30] VITALS: BP 105/58
[2020-08-30 05:17] LABS: CREATININE 2.34 mg/dL (0.55-1.02); POTASSIUM 4.1 mmol/L (3.5-5.1); TOTAL PROTEIN 6.3 gm/dL (6.4-8.2)
[2020-08-30 05:31] LABS: BASO % 0.5 % (0.0-1.0); EOS % 0.4 % (1.0-4.0); HEMATOCRIT 38.8 % (37.0-47.0); LYMPH # 0.2 10*3/uL (1.3-4.4); LYMPH % 2.2 % (27.0-41.0); MEAN CELL VOLUME 79.5 fl (81.0-99.0); MEAN CORPUSCULAR HGB 24.2 pg (27.0-31.0); MEAN CORPUSCULAR HGB CONC 30.4 g/dl (33.0-37.0); MEAN PLATELET VOLUME 10.2 fl (9.6-12.3); MONO # 0.7 10*3/uL (0.1-1.0); MONO % 8.6 % (3.0-9.0); NEUT # 7.5 10*3/uL (2.3-7.9); NEUT % 87.7 % (47.0-73.0); PLATELET COUNT AUTOMATED 123 10*3/uL (130-400); RED BLOOD COUNT 4.88 10*6/uL (4.10-5.10); RED CELL DISTRI WIDTH 18.7 % (0-14.5); WHITE BLOOD COUNT 8.6 10*3/uL (4.8-10.8)
[2020-08-30 08:00] VITALS: BP 122/66
[2020-08-30 12:00] VITALS: BP 115/58
[2020-08-30 16:00] VITALS: BP 113/69
[2020-08-30 20:00] VITALS: BP 105/55
[2020-08-31] VITALS: BP 112/64
[2020-08-31 05:40] VITALS: BP 88/48
[2020-08-31 06:48] LABS: HEMATOCRIT 44.1 % (37.0-47.0); MEAN CORPUSCULAR HGB 24.3 pg (27.0-31.0); MEAN CORPUSCULAR HGB CONC 28.8 g/dl (33.0-37.0); MEAN PLATELET VOLUME 11.7 fl (9.6-12.3); NUCLEATED RED BLOOD CELL 0.1 10*3/uL (0.0-0.0); NUCLEATED RED BLOOD CELL 0.2 % (0.0-0.0); PLATELET COUNT AUTOMATED 125 10*3/uL (130-400); RED BLOOD COUNT 5.23 10*6/uL (4.10-5.10); RED CELL DISTRI WIDTH 19.4 % (0-14.5); WHITE BLOOD COUNT 23.4 10*3/uL (4.8-10.8)
[2020-08-31 06:50] LABS: MEAN CELL VOLUME 84.3 fl (81.0-99.0)
[2020-08-31 07:01] LABS: TROPONIN I 3.3 ng/ml (<0.045)
[2020-08-31 07:15] LABS: BURR CELLS FEW; PLATELET SUFFICIENCY LOW (NORMAL); POLYCHROMASIA SLIGHT; SCHISTOCYTES FEW; TOTAL CELLS COUNTED 100 #CELLS
[2020-08-31 07:16] LABS: OVALOCYTES FEW
[2020-08-31 07:29] LABS: ALBUMIN 3.1 gm/dl (3.1-4.5); CREATININE 3.36 mg/dL (0.55-1.02); TOTAL PROTEIN 6.7 gm/dL (6.4-8.2)
== END 2020-08-31 06:53 | DRG 291 ==
LOC: ED 14:44 → 5E 17:33 → EDHOLD 17:33 → ICCU 17:33 → 5E 23:51 → ICCU 08-31 05:46
PROVIDERS: Emergency Medicine; Internal Medicine; Internal Medicine Nephrology; Student in an Organized Health Care Education/Training Program; ADMIT Internal Medicine; ATTEND Internal Medicine
PROC: 0HBRXZZ Excision of Toe Nail, External Approach (ICD-10-PCS; principal; 2020-08-26)
PROC: 0HBRXZZ Excision of Toe Nail, External Approach (ICD-10-PCS; 2020-08-26)
PROC: 0HBRXZZ Excision of Toe Nail, External Approach (ICD-10-PCS; 2020-08-26)
PROC: 0HBRXZZ Excision of Toe Nail, External Approach (ICD-10-PCS; 2020-08-26)
PROC: 0HBRXZZ Excision of Toe Nail, External Approach (ICD-10-PCS; 2020-08-26)
PROC: 0HBRXZZ Excision of Toe Nail, External Approach (ICD-10-PCS; 2020-08-26)
PROC: 0HBRXZZ Excision of Toe Nail, External Approach (ICD-10-PCS; 2020-08-26)
PROC: 0HBRXZZ Excision of Toe Nail, External Approach (ICD-10-PCS; 2020-08-26)
PROC: 0HBRXZZ Excision of Toe Nail, External Approach (ICD-10-PCS; 2020-08-26)
PROC: 0HBRXZZ Excision of Toe Nail, External Approach (ICD-10-PCS; 2020-08-26)
PROC: 06HY33Z Insertion of Infusion Device into Lower Vein, Percutaneous Approach (ICD-10-PCS; 2020-08-27)
PROC: 5A1D70Z Performance of Urinary Filtration, Intermittent, Less than 6 Hours Per Day (ICD-10-PCS; 2020-08-27)
PROC: 5A1D70Z Performance of Urinary Filtration, Intermittent, Less than 6 Hours Per Day (ICD-10-PCS; 2020-08-29)
PROC: 0BH17EZ Insertion of Endotracheal Airway into Trachea, Via Natural or Artificial Opening (ICD-10-PCS; 2020-08-31)
PROC: 5A1935Z Respiratory Ventilation, Less than 24 Consecutive Hours (ICD-10-PCS; 2020-08-31)
DX: I13.2 Hypertensive heart and chronic kidney disease with heart failure and with stage 5 chronic kidney disease, or end stage renal disease (principal); N17.0 Acute kidney failure with tubular necrosis; I50.23 Acute on chronic systolic (congestive) heart failure; N18.6 End stage renal disease; E87.2 Acidosis; E83.41 Hypermagnesemia; I43 Cardiomyopathy in diseases classified elsewhere; E87.8 Other disorders of electrolyte and fluid balance, not elsewhere classified; I27.20 Pulmonary hypertension, unspecified; D50.9 Iron deficiency anemia, unspecified; E80.6 Other disorders of bilirubin metabolism; E83.39 Other disorders of phosphorus metabolism; E87.5 Hyperkalemia; E73.9 Lactose intolerance, unspecified; B35.1 Tinea unguium; E11.65 Type 2 diabetes mellitus with hyperglycemia; E11.22 Type 2 diabetes mellitus with diabetic chronic kidney disease; R26.2 Difficulty in walking, not elsewhere classified; E11.51 Type 2 diabetes mellitus with diabetic peripheral angiopathy without gangrene; D64.9 Anemia, unspecified; Z88.8 Allergy status to other drugs, medicaments and biological substances; Z90.710 Acquired absence of both cervix and uterus; Z82.49 Family history of ischemic heart disease and other diseases of the circulatory system; Z83.3 Family history of diabetes mellitus; Z86.718 Personal history of other venous thrombosis and embolism; I25.2 Old myocardial infarction; Z79.82 Long term (current) use of aspirin; Z79.899 Other long term (current) drug therapy